=== PATIENT | female | born 1960 | race Hispanic/Latino ===

== ENCOUNTER → 2025-03-05 | Outpatient (CLI) | payer OTHER ==
--- NOTE | 2025-03-05 09:25 | HMCIMG ---
BONE DENSITOMETRY: HISTORY: UNSPECIFIED MENOPAUSAL AND PERIMENOPAUSAL DISORDER Comparison: none FINDINGS: BMD measured at AP spine L1-L4 is 0.948 g/cm2 with a T-score of -0.9 Bone density is up to 10% below young normal. This patient is considered normal according to WHO criteria. Fracture risk is low. BMD measured at Left Femoral Neck is 0.567 g/cm2 with a T-score of -2.6 This patient is considered osteoporotic according to WHO criteria. Fracture risk is high. BMD measured at Left Femoral Total is 0.749 g/cm2 with a T-score of -1.6 Bone density is between 10 and 25% below young normal. This patient is considered osteopenic. Fracture risk is moderate. IMPRESSION: Osteoporosis. High risk for atraumatic fractures. Treatment and follow-up recommended.
== END | disposition home or self-care (01) ==
LOC: RAH 08:06
PROVIDERS: ATTEND Internal Medicine
DX: M81.0 Age-related osteoporosis without current pathological fracture (principal); M85.852 Other specified disorders of bone density and structure, left thigh; N95.9 Unspecified menopausal and perimenopausal disorder
CPT/HCPCS: 77080

== ENCOUNTER → 2025-10-03 | Outpatient (CLI) | payer OTHER | END | disposition home or self-care (01) | LOC: RAH 11:14 | PROVIDERS: ATTEND Obstetrics & Gynecology | DX: Z12.31 Encounter for screening mammogram for malignant neoplasm of breast (principal) | CPT/HCPCS: 77067 ==